=== PATIENT | male | born 1960 | race Caucasian/White ===

== ENCOUNTER → 2016-10-14 | Day surgery (SDC) | payer OTHER ==
[~2016-10-14] MED LIST: AUGMENTIN 500-1 EACH PO; FLEXERIL10 MG PO; LISINOPRIL 10MG10 MG PO; NEURONTIN600 MG PO; NORCO 5-325 TA1 EACH PO; VOLTAREN **OUT75 MG PO
[2016-10-14 10:45] LABS: POTASSIUM 4.5 mmol/L (3.5-5.1)
== END | disposition home or self-care (01) ==
LOC: FAS 10:09
PROVIDERS: Surgery
DX: Z12.11 Encounter for screening for malignant neoplasm of colon (principal); F32.9 Major depressive disorder, single episode, unspecified; I10 Essential (primary) hypertension; Z79.899 Other long term (current) drug therapy; Z98.890 Other specified postprocedural states; Z90.49 Acquired absence of other specified parts of digestive tract
CPT/HCPCS: 36415; 80048; J2704